=== PATIENT | male | born 1950 | race Caucasian/White ===

== ENCOUNTER 2020-07-11 23:34 | Inpatient (IN) | payer MEDICARE, OTHER ==
[~2020-07-11] VITALS: Ht 177.8 cm; Wt 104.0 kg
[~2020-07-11 23:34] MED LIST: CARAFATE1 GM PO; FLORASTOR250 MG PO; OMEPRAZOLE20 M1 PO; PEPCID20 MG PO
[2020-07-12 00:35] LABS: HEMOGLOBIN 10.5 gm/dl (14.0-17.5); RED BLOOD COUNT 3.38 M/UL (4.20-5.50); WHITE BLOOD COUNT 11.9 K/UL (4.5-11.0)
[2020-07-12 00:39] LABS: BUN/CREATININE RATIO 12 (0-10)
[2020-07-12 05:15] LABS: BUN/CREATININE RATIO 13 (0-10)
[2020-07-12 07:18] LABS: HEMOGLOBIN 12.1 gm/dl (14.0-17.5)
[2020-07-12 07:20] LABS: RED BLOOD COUNT 3.91 M/UL (4.20-5.50); WHITE BLOOD COUNT 7.8 K/UL (4.5-11.0)
[2020-07-12] MEDS ORDERED: LIPITOR80 MG PO (11:48)
[2020-07-12] MEDS ORDERED: ELIQUIS 5 MG TAB5 MG PO (11:48)
[2020-07-12] MEDS ORDERED: ASPIRIN EC81 MG PO (11:48)
[2020-07-12] MEDS ORDERED: LOPRESSOR 25 MG25 MG PO (11:49)
[2020-07-12] MEDS ORDERED: PROTONIX 40 MG40 M1 PO (11:49)
[2020-07-12] MEDS ORDERED: ZESTRIL5 MG PO (11:49)
[2020-07-12 14:46] LABS: RED BLOOD COUNT 3.06 M/UL (4.20-5.50); WHITE BLOOD COUNT 14.1 K/UL (4.5-11.0)
[2020-07-12 14:47] LABS: HEMOGLOBIN 9.2 gm/dl (14.0-17.5)
[2020-07-12 15:03] LABS: BUN/CREATININE RATIO 16 (0-10)
[2020-07-12 23:17] LABS: HEMOGLOBIN 9.1 gm/dl (14.0-17.5); RED BLOOD COUNT 2.89 M/UL (4.20-5.50); WHITE BLOOD COUNT 10.6 K/UL (4.5-11.0)
[2020-07-12 23:30] LABS: BUN/CREATININE RATIO 17 (0-10)
[2020-07-13 04:38] LABS: HEMOGLOBIN 8.8 gm/dl (14.0-17.5); RED BLOOD COUNT 2.81 M/UL (4.20-5.50); WHITE BLOOD COUNT 10.6 K/UL (4.5-11.0)
[2020-07-13 04:59] LABS: BUN/CREATININE RATIO 18 (0-10)
[2020-07-13 10:20] LABS: RED BLOOD COUNT 2.9 M/UL (4.20-5.50); WHITE BLOOD COUNT 8.1 K/UL (4.5-11.0)
[2020-07-13 19:20] LABS: HEMOGLOBIN 8.7 gm/dl (14.0-17.5); RED BLOOD COUNT 2.84 M/UL (4.20-5.50)
[2020-07-13 19:45] LABS: WHITE BLOOD COUNT 4.7 K/UL (4.5-11.0)
[2020-07-14 05:17] LABS: BUN/CREATININE RATIO 19 (0-10)
[2020-07-14 05:26] LABS: HEMOGLOBIN 8.4 gm/dl (14.0-17.5); RED BLOOD COUNT 2.75 M/UL (4.20-5.50); WHITE BLOOD COUNT 4.5 K/UL (4.5-11.0)
[2020-07-14 15:22] LABS: HEMOGLOBIN 8.5 gm/dl (14.0-17.5); RED BLOOD COUNT 2.86 M/UL (4.20-5.50); WHITE BLOOD COUNT 5.2 K/UL (4.5-11.0)
[2020-07-15 05:22] LABS: HEMOGLOBIN 7.9 gm/dl (14.0-17.5); RED BLOOD COUNT 2.73 M/UL (4.20-5.50); WHITE BLOOD COUNT 4.8 K/UL (4.5-11.0)
[2020-07-15 05:41] LABS: BUN/CREATININE RATIO 15 (0-10)
[2020-07-15 15:22] LABS: BUN/CREATININE RATIO 13 (0-10)
[2020-07-15 17:18] LABS: HEMOGLOBIN 8.5 gm/dl (14.0-17.5); RED BLOOD COUNT 2.75 M/UL (4.20-5.50); WHITE BLOOD COUNT 4.5 K/UL (4.5-11.0)
[2020-07-15 19:20] LABS: BUN/CREATININE RATIO 14 (0-10)
[2020-07-16 05:32] LABS: HEMOGLOBIN 8.6 gm/dl (14.0-17.5); RED BLOOD COUNT 2.84 M/UL (4.20-5.50); WHITE BLOOD COUNT 4.5 K/UL (4.5-11.0)
[2020-07-16 05:54] LABS: BUN/CREATININE RATIO 10 (0-10)
[2020-07-16 18:54] LABS: BUN/CREATININE RATIO 10 (0-10)
[2020-07-17 05:51] LABS: BUN/CREATININE RATIO 12 (0-10)
[2020-07-17 07:02] LABS: HEMOGLOBIN 9.5 gm/dl (14.0-17.5); RED BLOOD COUNT 3.11 M/UL (4.20-5.50)
[2020-07-17 07:03] LABS: WHITE BLOOD COUNT 7.1 K/UL (4.5-11.0)
[2020-07-17 18:37] LABS: BUN/CREATININE RATIO 16 (0-10)
[2020-07-18 06:44] LABS: HEMOGLOBIN 8.5 gm/dl (14.0-17.5); RED BLOOD COUNT 2.76 M/UL (4.20-5.50); WHITE BLOOD COUNT 6.7 K/UL (4.5-11.0)
[2020-07-18 07:07] LABS: BUN/CREATININE RATIO 20 (0-10)
[2020-07-19 05:36] LABS: HEMOGLOBIN 8.4 gm/dl (14.0-17.5); RED BLOOD COUNT 2.76 M/UL (4.20-5.50)
[2020-07-19 05:54] LABS: BUN/CREATININE RATIO 31 (0-10)
[2020-07-20 05:59] LABS: RED BLOOD COUNT 2.56 M/UL (4.20-5.50); WHITE BLOOD COUNT 7.5 K/UL (4.5-11.0)
[2020-07-20 06:11] LABS: BUN/CREATININE RATIO 30 (0-10)
[2020-07-21 06:01] LABS: HEMOGLOBIN 8.9 gm/dl (14.0-17.5); RED BLOOD COUNT 2.84 M/UL (4.20-5.50); WHITE BLOOD COUNT 8.8 K/UL (4.5-11.0)
[2020-07-21 06:19] LABS: BUN/CREATININE RATIO 27 (0-10)
[2020-07-23 13:41] LABS: HEMOGLOBIN 8.2 gm/dl (14.0-17.5); RED BLOOD COUNT 2.69 M/UL (4.20-5.50); WHITE BLOOD COUNT 9.8 K/UL (4.5-11.0)
[2020-07-23 14:02] LABS: BUN/CREATININE RATIO 21 (0-10)
--- NOTE | 2020-07-25 03:20 | NUR ---
GIOVANNI DRAIN ASSESSED WELL WOUND VAC. PT BROKE WOUND VAC BY KICKING OFF THE BED. WOUND VAC REPLACED. GIOVANNI DRAINS, DRAINED.
[2020-07-25 12:07] LABS: HEMOGLOBIN 8.3 gm/dl (14.0-17.5); RED BLOOD COUNT 2.64 M/UL (4.20-5.50); WHITE BLOOD COUNT 7.5 K/UL (4.5-11.0)
[2020-07-25 12:38] LABS: BUN/CREATININE RATIO 19 (0-10)
[2020-07-26 02:36] LABS: HEMOGLOBIN 7.8 gm/dl (14.0-17.5); RED BLOOD COUNT 2.57 M/UL (4.20-5.50); WHITE BLOOD COUNT 7.1 K/UL (4.5-11.0)
[2020-07-26 03:50] LABS: BUN/CREATININE RATIO 15 (0-10)
[2020-07-27 09:53] LABS: HEMOGLOBIN 8.8 gm/dl (14.0-17.5); RED BLOOD COUNT 2.82 M/UL (4.20-5.50); WHITE BLOOD COUNT 7.7 K/UL (4.5-11.0)
[2020-07-27 10:09] LABS: BUN/CREATININE RATIO 12 (0-10)
[2020-07-28 03:05] LABS: HEMOGLOBIN 9.1 gm/dl (14.0-17.5); RED BLOOD COUNT 2.86 M/UL (4.20-5.50); WHITE BLOOD COUNT 7.8 K/UL (4.5-11.0)
[2020-07-28 03:30] LABS: BUN/CREATININE RATIO 11 (0-10)
[2020-07-29 04:47] LABS: HEMOGLOBIN 9.8 gm/dl (14.0-17.5); RED BLOOD COUNT 3.12 M/UL (4.20-5.50); WHITE BLOOD COUNT 9.1 K/UL (4.5-11.0)
[2020-07-29 05:15] LABS: BUN/CREATININE RATIO 8 (0-10)
--- NOTE | 2020-07-29 23:48 | NUR ---
WOUND VAC CANNISTER CHANGED WITH 800ML OF DRAINAGE
[2020-07-30 16:04] LABS: HEMOGLOBIN 10.4 gm/dl (14.0-17.5); RED BLOOD COUNT 3.3 M/UL (4.20-5.50); WHITE BLOOD COUNT 10.8 K/UL (4.5-11.0)
[2020-07-30 16:16] LABS: BUN/CREATININE RATIO 9 (0-10)
--- NOTE | 2020-07-30 23:48 | NUR ---
HEARD A THUMP AND CUSSING FROM THE PATIENTS ROOM, UPON ENTERING, HE WAS LAYING ON HIS LEFT SIDE IN THE FLOOR. HE SAID HE WAS LOOKING FOR HIS WALLET AND NEEDED HELP. I ASSESSED THE PATIENT, HE HAD NO OBVIOUS INJURY AND WAS AT HIS BASELINE CONFUSION. HIS VITALS WERE 122/87, 99.1, 98% ON ROOM AIR, 89 HR AND 18 RR. WITH THE AID OF TWO TECHS AND THREE NURSES, WE SAT HIM UP FOR A FEW MINUTES AND THEN STOOD HIM UP AND GOT HIM BACK INTO BED. HE IS COMPLAINING THAT HIS LEFT ELBOW IS HURTING. I NOTIFIED ROE, FERRY CAPTAIN AND . HE GAVE NO ORDERS. THE PATIENT HAD ON FALL BRACELET, NON SKID SOCKS, YELLOW LIGHT ON, AND NEAR THE NURSES STATION. HIS STRIP ALARM WAS NOT PLUGGED IN. THE TECH SAYS HE IS UNSURE IF HE TURNED THE BED ALARM BACK ON AFTER CHANGING HIM. THE BED ALARM ONLY WORKS ON ONE SIDE, WHICH WE WERE UNAWARE OF UNTIL WE WENT TO RESET THE ALARM POST FALL.
--- NOTE | 2020-07-31 00:04 | NUR ---
ATTEMPTED TO CALL EMERGENCY CONTACT IN REGARDS TO FALL, HE DID NOT ANSWER.
[2020-08-01 07:13] LABS: RED BLOOD COUNT 2.99 M/UL (4.20-5.50)
[2020-08-01 07:36] LABS: BUN/CREATININE RATIO 9 (0-10)
[2020-08-02 07:34] LABS: HEMOGLOBIN 9.3 gm/dl (14.0-17.5); RED BLOOD COUNT 3.01 M/UL (4.20-5.50); WHITE BLOOD COUNT 5.9 K/UL (4.5-11.0)
[2020-08-02 07:52] LABS: BUN/CREATININE RATIO 9 (0-10)
[2020-08-05 12:08] LABS: BUN/CREATININE RATIO 9 (0-10)
--- NOTE | 2020-08-06 06:22 | NUR ---
DRESSING CHANGE COMPLETED THIS MORNING. WOUND EDGES ARE SMOOTH AND WELL APPROXIMATED; SKIN IS PINK. PACKED PER ORDERS. PT TOLERATED WELL.
[2020-08-11 14:27] LABS: BUN/CREATININE RATIO 12 (0-10)
[2020-08-13] MEDS ORDERED: PERCOCET 5/325 T1 EA NG (09:11)
[2020-08-13] MEDS ORDERED: DILTIAZEM 24HR180 M1 PO (09:11)
== END 2020-08-13 17:00 | disposition home or self-care (01) | DRG 329 ==
LOC: ER1 23:34 → CCU 07-12 03:13 → ZEROF 07-12 03:13 → CCU 07-12 03:25 → PROG CARE 07-24 19:09 → MED SURG 4 07-29 16:55 → PROG CARE 08-05 11:57
PROVIDERS: Family Medicine; Internal Medicine; Physician Assistant; Surgery; ADMIT Surgery
PROC: 0W3H0ZZ Control Bleeding in Retroperitoneum, Open Approach (ICD-10-PCS; 2020-07-12)
PROC: 05HM33Z Insertion of Infusion Device into Right Internal Jugular Vein, Percutaneous Approach (ICD-10-PCS; 2020-07-12)
PROC: 5A1955Z Respiratory Ventilation, Greater than 96 Consecutive Hours (ICD-10-PCS; 2020-07-12)
PROC: 0BH17EZ Insertion of Endotracheal Airway into Trachea, Via Natural or Artificial Opening (ICD-10-PCS; 2020-07-12)
PROC: 30233N1 Transfusion of Nonautologous Red Blood Cells into Peripheral Vein, Percutaneous Approach (ICD-10-PCS; 2020-07-12)
PROC: 0DB80ZZ Excision of Small Intestine, Open Approach (ICD-10-PCS; principal; 2020-07-12 10:05)
PROC: 0DJW0ZZ Inspection of Peritoneum, Open Approach (ICD-10-PCS; 2020-07-12 12:30)
PROC: 0WCG0ZZ Extirpation of Matter from Peritoneal Cavity, Open Approach (ICD-10-PCS; 2020-07-12 12:30)
PROC: 3E1M38Z Irrigation of Peritoneal Cavity using Irrigating Substance, Percutaneous Approach (ICD-10-PCS; 2020-07-14)
PROC: 2W43X5Z Packing of Abdominal Wall using Packing Material (ICD-10-PCS; 2020-07-14)
PROC: B24BYZZ Ultrasonography of Heart with Aorta using Other Contrast (ICD-10-PCS; 2020-08-12)
DX: S36.499A Other injury of unspecified part of small intestine, initial encounter (principal); S31.64 Puncture wound with foreign body of abdominal wall with penetration into peritoneal cavity; T79.4XXA Traumatic shock, initial encounter; J96.00 Acute respiratory failure, unspecified whether with hypoxia or hypercapnia; G93.41 Metabolic encephalopathy; J15.6 Pneumonia due to other Gram-negative bacteria; E87.2 Acidosis; E46 Unspecified protein-calorie malnutrition; N39.0 Urinary tract infection, site not specified; D62 Acute posthemorrhagic anemia; F10.10 Alcohol abuse, uncomplicated; E87.6 Hypokalemia; E87.70 Fluid overload, unspecified; E78.5 Hyperlipidemia, unspecified; S36.429A Contusion of unspecified part of small intestine, initial encounter; I48.91 Unspecified atrial fibrillation; I25.10 Atherosclerotic heart disease of native coronary artery without angina pectoris; I10 Essential (primary) hypertension; K74.60 Unspecified cirrhosis of liver; D64.9 Anemia, unspecified; I07.1 Rheumatic tricuspid insufficiency; Z96.653 Presence of artificial knee joint, bilateral; W32.0XXA Accidental handgun discharge, initial encounter; Z79.01 Long term (current) use of anticoagulants; I25.2 Old myocardial infarction; Z85.038 Personal history of other malignant neoplasm of large intestine; Z98.890 Other specified postprocedural states; Z95.818 Presence of other cardiac implants and grafts; Z88.8 Allergy status to other drugs, medicaments and biological substances; Z68.32 Body mass index [BMI] 32.0-32.9, adult
CPT/HCPCS: ECHO; 31500; 36415; 36430; 36556; 36600; 70450; 71045; 71260; 74018; 74230; 80048; 80053; 80202; 81001; 82140; 82330; 82803; 82962; 83605; 83735; 83880; 84100; 84132; 85025; 85027; 85384; 85610; 85730; 86850; 86900; 86901; 86920; 86927; 87040; 87070; 87077; 87086; 87186; 87205; 87635; 92526; 92610; 92611-GN; 93005; 93306; 94002; 94003; 94640; 94760; 96374; 96375; 97110-GP-CQ; 97116; 97116-GP-CQ; 97163; 97164; 97166; 97168; 97530; 97530-GP-CQ; 97535; 99285; A6212; C1713; C1751; C9113; C9132; G0480; J0610; J0690; J1170; J1200; J1650; J1940; J2060; J2250; J2270; J2370; J2405; J2543; J2704; J3010; J3370; J3410; J3475; J3480; J7030; J7040; J7050; J7070; J7120; P9016; P9017; P9035; P9037; P9045; P9047; Q9967

== ENCOUNTER 2020-09-20 20:24 | Emergency (ER) | payer OTHER, MEDICARE ==
[~2020-09-20 20:24] MED LIST changes: +ASPIRIN EC81 MG PO; +DILTIAZEM 24HR180 M1 PO; +ELIQUIS 5 MG TAB5 MG PO; +LIPITOR80 MG PO; +LOPRESSOR 25 MG25 MG PO; +PERCOCET 5/325 T1 EA NG; +PROTONIX 40 MG40 M1 PO; +ZESTRIL5 MG PO
[2020-09-20 21:03] LABS: HEMOGLOBIN 7.5 gm/dl (14.0-17.5); RED BLOOD COUNT 2.56 M/UL (4.20-5.50); WHITE BLOOD COUNT 4.5 K/UL (4.5-11.0)
[2020-09-20 21:25] LABS: BUN/CREATININE RATIO 14 (0-10)
== END 2020-09-21 00:15 | disposition home or self-care (01) ==
LOC: ER1 20:24
PROVIDERS: Physician Assistant
DX: L02.211 Cutaneous abscess of abdominal wall (principal); I10 Essential (primary) hypertension; E78.5 Hyperlipidemia, unspecified
CPT/HCPCS: 80053; 83605; 85025; 85652; 86140; 99284